=== PATIENT | male | born 1975 | race African-American/Black ===

== ENCOUNTER 2020-07-24 07:08 | Emergency (ER) | payer OTHER ==
[2020-07-24 07:59] VITALS: BP 145/82; PULSE 82; TEMP 98.2; BMI 25.8
== END 2020-07-24 09:25 | disposition home or self-care (01) ==
LOC: JER 07:08
DX: R06.02 Shortness of breath (principal)
CPT/HCPCS: 71046-TC-FY; 93005; 93010; 99284-25